=== PATIENT | female | born 1955 | race Caucasian/White ===

== ENCOUNTER 2024-03-18 15:10 | Emergency (ER) | payer BC ==
[2024-03-18 15:48] VITALS: BP 173/91; PULSE 68; RESP 16; TEMP 98.1; BMI 25.9
[2024-03-18] MEDS ORDERED: ACETAMINOPHEN 325 MG TABLET (FP) ONE (16:25)
[2024-03-18] MEDS: ACETAMINOPHEN 500 MG TABLET (FP) PO ONE (16:45)
[2024-03-18] MEDS: DIPHTH,PERTUSS(ACELL),TET 0.5 ML DISP.SYRIN IM ONE (18:16)
[2024-03-18] MEDS ORDERED: DIPHTH,PERTUSS(ACELL),TET 0.5 ML DISP.SYRIN IM ONE (18:16)
[2024-03-18] MEDS ORDERED: KETOROLAC TROMETHAMINE 15 MG/ML VIAL IVPUSH ONE (19:19)
[2024-03-18] MEDS ORDERED: KETOROLAC TROMETHAMINE 30 MG/1 ML VIAL ONE (19:21)
[2024-03-18] MEDS: KETOROLAC TROMETHAMINE 30 MG/1 ML VIAL IM ONE (19:25)
== END 2024-03-18 19:28 | disposition home or self-care (01) ==
LOC: JER 15:10
PROC: 3E023GC Introduction of Other Therapeutic Substance into Muscle, Percutaneous Approach (ICD-10-PCS; principal; 2024-03-18)
PROC: 3E0234Z Introduction of Serum, Toxoid and Vaccine into Muscle, Percutaneous Approach (ICD-10-PCS; 2024-03-18)
DX: M25.512 Pain in left shoulder (principal); M79.602 Pain in left arm; M25.552 Pain in left hip; M25.562 Pain in left knee; W01.0XXA Fall on same level from slipping, tripping and stumbling without subsequent striking against object, initial encounter; Y93.01 Activity, walking, marching and hiking
CPT/HCPCS: 70450-TC; 72125-TC; 72170-TC-FY; 73030-TC-LT-FY; 73130-TC-LT-FY; 73562-TC-LT-FY; 73700-TC-RT; 90715; 99284-25